=== PATIENT | female | born 2000 | race Two or more races ===

== ENCOUNTER 2019-10-10 16:01 | Emergency (ER) | payer MEDICAID ==
[~2019-10-10] VITALS: Ht 162.6 cm; Wt 106.4 kg
--- NOTE | 2019-10-10 17:50 | NUR ---
Pt to rm 2 from [facility]
--- NOTE | 2019-10-10 18:51 | NUR ---
REPORT GIVEN TO ARTHUR.
--- NOTE | 2019-10-10 19:01 | NUR ---
PT FOR RECHECK BY ERP
[2019-10-10 19:48] VITALS: BP 122/81
== END 2019-10-10 19:50 | disposition home or self-care (01) ==
LOC: ED 19:43
DX: R00.2 Palpitations (principal)
CPT/HCPCS: 71046; 99283